=== PATIENT | female | born 1965 | race American Indian/Alaskan Native ===

== ENCOUNTER 2021-08-10 09:29 | Emergency (ER) | payer MEDICARE ==
[2021-08-10 09:41] VITALS: BP 124/96
--- NOTE | 2021-08-10 11:06 | Emergency Department Report ---
ED ENT HPI - General Chief complaint: Earache Stated complaint: LEFT EAR PAIN X 3WEEKS Time Seen by Provider: 08/10/21 10:43 Source: patient Mode of arrival: Ambulatory Limitations: No Limitations - History of Present Illness Initial comments: Patient is a 56-year-old female that comes to the emergency room complaining of left ear pain. She states that she saw her PCP and he started her on polymyxin drops. However, the ear is gotten worse. He also started her on amoxicillin which she is allergic to. She denies any trauma to her ear. She denies any foreign body triggering this. She has no fever. No hypotension or tachycardia. MD complaint: ear pain -: Gradual, week(s) Location: L ear Severity: moderate Severity scale (0 -10): 5 Quality: crushing Improves with: none Worsens with: none Associated Symptoms: discharge from ear. denies: fever, cough, gum swelling, toothache, pain with swallowing, sore throat, tinnitus, hearing loss, rhinorrhea - Related Data Previous Rx's Medication Instructions Recorded Last Taken Type Clindamycin [Clindamycin CAP] 300 mg PO Q8H #30 cap 08/10/21 Unknown Rx Ofloxacin 0.3% [Floxin 0.3% Otic] 2 drops OS Q4H #1 bottle 08/10/21 Unknown Rx ED Dental HPI - General Chief complaint: Earache Stated complaint: LEFT EAR PAIN X 3WEEKS Time Seen by Provider: 08/10/21 10:43 Source: patient Mode of arrival: Ambulatory Limitations: No Limitations - Related Data Previous Rx's Medication Instructions Recorded Last Taken Type Clindamycin [Clindamycin CAP] 300 mg PO Q8H #30 cap 08/10/21 Unknown Rx Ofloxacin 0.3% [Floxin 0.3% Otic] 2 drops OS Q4H #1 bottle 08/10/21 Unknown Rx ED Review of Systems ROS: Stated complaint: LEFT EAR PAIN X 3WEEKS Other details as noted in HPI Comment: All other systems reviewed and negative ED Past Medical Hx - Past Medical History Previous Medical History?: Yes Hx Hypertension: Yes Additional medical history: high cholesterol, anxiety - Surgical History Past Surgical History?: Yes Hx Cholecystectomy: Yes Additional Surgical History: carpal tunnel release bilateral - Family History Family history: no significant - Social History Smoking Status: Never Smoker Substance Use Type: None - Medications Home Medications: Home Medications Medication Instructions Recorded Confirmed Last Taken Type Clindamycin [Clindamycin CAP] 300 mg PO Q8H #30 cap 08/10/21 Unknown Rx Ofloxacin 0.3% [Floxin 0.3% Otic] 2 drops OS Q4H #1 bottle 08/10/21 Unknown Rx ED Physical Exam - General Limitations: No Limitations General appearance: alert, in no apparent distress - Head Head exam: Present: atraumatic, normocephalic - Eye Eye exam: Present: normal appearance - ENT ENT exam: Present: mucous membranes moist - Expanded ENT Exam Expanded TM/Canal exam: Erythema: Left TM, Loss of Landmarks: Left TM, Canal Discharge: Left TM, Canal Tenderness: Left TM - Neck Neck exam: Present: normal inspection - Respiratory Respiratory exam: Present: normal lung sounds bilaterally. Absent: respiratory distress - Cardiovascular Cardiovascular Exam: Present: regular rate, normal rhythm. Absent: systolic murmur, diastolic murmur, rubs, gallop - GI/Abdominal GI/Abdominal exam: Present: soft, normal bowel sounds - Extremities Exam Extremities exam: Present: normal inspection - Back Exam Back exam: Present: normal inspection - Neurological Exam Neurological exam: Present: alert, oriented X3 - Psychiatric Psychiatric exam: Present: normal affect, normal mood - Skin Skin exam: Present: warm, dry, intact, normal color. Absent: rash ED Course Vital Signs 08/10/21 09:37 Temperature 99.3 F Pulse Rate 104 H Respiratory 16 Rate Blood Pressure 124/96 O2 Sat by Pulse 96 Oximetry ED Medical Decision Making - Medical Decision Making Vital Signs - 24 hr 08/10/21 09:37 Temperature 99.3 F Pulse Rate 104 H Respiratory 16 Rate Blood Pressure 124/96 O2 Sat by Pulse 96 Oximetry I have changed patient's antibiotics to clindamycin and moxifloxacin drops. She is going to see ENT. Patient being discharged home with discharge plan of care including diet, activity, medications and follow-up. She verbalizes understanding of plan of care - Differential Diagnosis Otitis media versus externa Critical care attestation.: If time is entered above; I have spent that time in minutes in the direct care of this critically ill patient, excluding procedure time. ED Disposition Clinical Impression: Otitis media Qualifiers: Otitis media type: unspecified Chronicity: acute Qualified Code(s): H66.90 - Otitis media, unspecified, unspecified ear Otitis externa Qualifiers: Otitis externa type: diffuse Chronicity: acute Laterality: left Qualified Code(s): H60.312 - Diffuse otitis externa, left ear Disposition: HOME / SELF CARE / HOMELESS Is pt being admited?: No Does the pt Need Aspirin: No Condition: Stable Instructions: Otitis Externa, Otitis Media, Adult Additional Instructions: Motrin or Tylenol for pain Stop your current oral and drop antibiotics. Use only the medications have given you today. In 72 hours follow-up with ENT for further evaluations. I have given you referral below Prescriptions: Clindamycin [Clindamycin CAP] 300 mg PO Q8H #30 cap Ofloxacin 0.3% [Floxin 0.3% Otic] 2 drops OS Q4H #1 bottle Referrals: BRAYAN HORN MD [Staff Physician] - 3-5 Days Forms: Work/School Release Form(ED) Time of Disposition: 11:04
== END 2021-08-10 11:34 | disposition home or self-care (01) ==
LOC: ED 09:29
DX: H66.92 Otitis media, unspecified, left ear (principal); H60.312 Diffuse otitis externa, left ear; I10 Essential (primary) hypertension
CPT/HCPCS: 99282